=== PATIENT | female | born 1980 | race African-American/Black ===

== ENCOUNTER → 2019-04-17 | Outpatient (CLI) | payer OTHER | LOC: COL.RAD 08:28 | DX: Z87.59 Personal history of other complications of pregnancy, childbirth and the puerperium (principal) | CPT/HCPCS: Q9967 ==

== ENCOUNTER → 2020-04-05 | Outpatient (CLI) | payer OTHER | LOC: BHSO 13:04 | DX: F33.1 Major depressive disorder, recurrent, moderate (principal) ==

== ENCOUNTER → 2020-04-09 | Outpatient (CLI) | payer OTHER | LOC: BHSO 13:02 | DX: F33.1 Major depressive disorder, recurrent, moderate (principal) ==

== ENCOUNTER → 2020-04-18 | Outpatient (CLI) | payer OTHER | LOC: BHSO 13:00 | DX: F33.0 Major depressive disorder, recurrent, mild (principal) ==

== ENCOUNTER → 2020-05-16 | Outpatient (CLI) | payer OTHER | LOC: BHSO 13:00 | DX: F33.0 Major depressive disorder, recurrent, mild (principal) ==